=== PATIENT | male | born 1980 | race African-American/Black ===

== ENCOUNTER 2022-04-10 13:42 | Emergency (ER) | payer MEDICAID, SELFPAY ==
[2022-04-10 14:40] VITALS: BP 158/102; PULSE 84; RESP 18; TEMP 37; O2SAT 97; BMI 26.8
--- NOTE | 2022-04-10 14:49 | ED_ITS ---
HPI - Dental/Oral General: Chief complaint: Dental/Oral Stated complaint: Tooth Abcess Time Seen by Provider: 04/10/22 14:47 History of Present Illness: Patient is a 42-year-old male comes to the ED with dental pain. Symptoms started yesterday. He has had a dental abscess in the past in same location. Dental pain in gingival swelling located upper right first molar and bicuspid. He rates his pain currently 9 out of 10. Denies any fevers. Associated symptoms: Denies fever(s) or odynophagia Review of Systems Const: Denies: fever(s), chills or fatigue Eyes: Denies: change in vision or eye discomfort ENMT: Reports: dental pain; Denies: throat pain, odynophagia, nasal discharge or nasal congestion Card: Denies: chest pain, palpitations, edema, swelling of feet/ankles, dyspnea on exertion or orthopnea Resp: Denies: dyspnea, productive cough or non-productive cough GI: Denies: abdominal pain, nausea, vomiting, diarrhea, constipation or hematochezia : Denies: flank pain, difficulty urinating, dysuria or hematuria Musc: Denies: neck pain, back pain or extremity swelling Skin/Breast: Denies: rash or new lesions Neuro: Denies: headache(s), numbness in extremities or weakness in extremities PFSH ED PFSH: Medical History No pertinent family history Surgical History No pertinent past surgical history Physical Exam Const: COMMON NORMALS: no acute distress, patient oriented x3, healthy appearing and alert GENERAL APPEARANCE: cooperative and comfortable HENMT: COMMON NORMALS: normocephalic HEAD & SCALP: normocephalic MOUTH: Normal oral and palatal mucosa present TEETH & GINGIVA: Yes abnormal tooth and associated gingiva upper right second bicuspid tender and with associated gingival edema, Yes caries and Yes poor dentition THROAT: posterior oropharynx normal and uvula midline Neck/C-Spine: COMMON NORMALS: supple GENERAL: Yes normal visual inspection Resp: COMMON NORMALS: normal respiratory effort, No retractions, No use of accessory muscles and clear to auscultation bilaterally AUSCULTATION: clear to auscultation bilaterally Cardio: COMMON NORMALS: regular rate, regular rhythm, S1 normal heart sound present, S2 normal heart sound present, No gallops present (Cardio), No clicks present (Cardio), No murmurs present (Cardio) and Peripheral pulses 2+ throughout RATE: regular rate RHYTHM: regular rhythm HEART SOUNDS: S1 normal heart sound present and S2 normal heart sound present PERIPHERAL PULSES: Peripheral pulses 2+ throughout GI: COMMON NORMALS: Normal to inspection, nondistended, normoactive bowel sounds present, Soft to palpation, non-tender and no masses PALPATION: Yes Soft to palpation : COMMON NORMALS: Yes no CVA tenderness BLADDER/KIDNEY EXAM: Yes no CVA tenderness Back/Pelvis: COMMON NORMALS: no CVA tenderness Extremity: COMMON NORMALS: normal to inspection Neuro: COMMON NORMALS: patient oriented x3 SENSORIUM/ORIENTATION: Yes alert GAIT: Yes Normal gait present Skin: GENERAL SKIN EXAM: dry skin Course Vital Signs: Vital signs: Vital Signs Temperature 98.6 F 04/10/22 14:40 Pulse Rate 84 04/10/22 14:40 Respiratory Rate 18 04/10/22 14:40 Blood Pressure 158/102 04/10/22 14:40 Pulse Oximetry 97 04/10/22 14:40 Oxygen Delivery Me thod 04/10/22 14:40 MDM - Dental/Oral Medical Decision Making Patient is a 42-year-old male comes to the ED with dental pain. Vitals are stable. He appears nontoxic in no acute distress. He has poor dentition with extensive dental decay on multiple teeth. He has some associated gingival edema and tenderness around bicuspids of upper right jaw. Patient was given a dose of pain meds here in the ED and clindamycin. Patient diagnosed with dental abscess and was discharged home with a prescription for clindamycin and a couple hydrocodone to help with pain. He was told to follow-up with dentist as soon as possible to have dental pain addressed. Return to ED precautions given. Patient understood and agreed with plan. Discharge Plan Discharge Patient Disposition: Home Clinical Impression: Dental abscess Condition: Stable Prescriptions: New clindamycin HCl 150 mg capsule 300 mg PO QID 10 Days Qty: 80 0RF ibuprofen 800 mg tablet 800 mg PO Q8H PRN (Reason: pain) Qty: 30 0RF Discharge Orders: Discharge ED (Routine); Ordered 04/10/22 Ordered By: Juan Antonio Stafford Discharge Diet: Regular Discharge Activity: Resume usual activity Patient Instructions: Dental Abscess (ED), Opioid Safety Activity Restrictions/Additional Instructions: Follow-up with dentist as soon as possible to have dental abscess treated. Take medications as prescribed. Return to the ER or your medical provider if condition worsens. Please read and understand discharge instructions. Thank you for choosing [facility] for your healthcare needs today. Please realize this is an emergency room and that we are providing you with a medical screening exam and this may not be complete and all inclusive of all the testing and or work up that you may need to determine your ailment or severity of your illness. It is very important that you follow up as instructed or that you return to the Emergency Department should you have concerns or if your condition changes or worsens in any way. Coding Level of Care Code ED Tool And Die Maker/Designer for Nany Dhillon Exam Comprehensive
[2022-04-10] MEDS: oxyCODONE-APAP 5-325 mg Tablet 1 TAB PO (15:48)
[2022-04-10] MEDS: clindamycin 150 mg Capsule 300 MG PO (15:48)
== END 2022-04-10 15:49 | disposition home or self-care (01) ==
PROVIDERS: Emergency Provider Physician Assistant
DX: K04.7 Periapical abscess without sinus (principal)
CPT/HCPCS: 99283

== ENCOUNTER 2022-05-12 20:56 | Emergency (ER) | payer MEDICAID, SELFPAY ==
--- NOTE | 2022-05-12 20:57 | XRR_ITS ---
PROCEDURE INFORMATION: Exam: XR Left Shoulder Exam date and time: 05/12/2022 9:12 PM Age: 42 years old Clinical indication: Pain; Shoulder; Left; Additional info: Left shoulder pain TECHNIQUE: Imaging protocol: Radiologic exam of the Left shoulder. Views: 2 or more views. COMPARISON: No relevant prior studies available. FINDINGS: Bones/joints: There is possibly a small displaced fracture lucency involving the most distal aspect of the clavicle at the inferior margin. Acromioclavicular alignment is otherwise unremarkable. Glenohumeral joint is normal. Bone mineralization is unremarkable. Soft tissues: Unremarkable soft tissues. XR/XR shoulder LT min 2V* [id number] IMPRESSION: Suspicion for distal left clavicle fracture. Suboptimal visualization. Dedicated clavicle radiographic views or CT scan could clarify.
[2022-05-12 21:53] VITALS: BP 116/83; PULSE 91; RESP 16; TEMP 36.7; O2SAT 96; BMI 25.4
--- NOTE | 2022-05-12 22:23 | XRR_ITS ---
PROCEDURE INFORMATION: Exam: XR Left Clavicle, Complete Exam date and time: 05/12/2022 10:27 PM Age: 42 years old Clinical indication: Pain; Shoulder; Left; Additional info: Pain and abnormal shoulder XR TECHNIQUE: Imaging protocol: Radiologic exam of the Left clavicle. Complete exam. Views: Any number of views. COMPARISON: CR (CHEST, ) 05/12/2022 9:12 PM FINDINGS: Bones/joints: No fractures are visible. Unremarkable joint space alignments. Minor osseous spurring of the distal acromion process. No bone erosion. Questionable abnormality on the prior left shoulder radiographs likely overlying artifact. Soft tissues: Unremarkable soft tissues. XR/[place] [id number] IMPRESSION: No acute left clavicle abnormality identified.
--- NOTE | 2022-05-12 23:15 | ED_ITS ---
HPI - Extremity Problem General: Chief complaint: Extremity Injury, Upper Stated complaint: Left shoulder pain Time Seen by Provider: 05/12/22 22:22 History of Present Illness: Patient is in today for left shoulder pain. He reports that back in January he injured this playing arena football home. He reports that he has not been able to get an MRI of the shoulder just yet. He reports that tonight he reached out to grab his truck door when it open while driving and the pressure pulling against the truck door causing immediate pain. He reports limited range of motion and increased pain right at the joint. Associated symptoms: Deny fever(s) Review of Systems Const: Denies: fever(s) or chills Musc: Reports: joint pain and limited range of motion PFS ED PFSH: Medical History No pertinent family history Surgical History No pertinent past surgical history Physical Exam Const: COMMON NORMALS: no acute distress, patient oriented x3 and alert Resp: COMMON NORMALS: normal respiratory effort and No use of accessory muscles Extremity: NARRATIVE EXTREMITY EXAM: Tenderness to palpation in the left anterior shoulder. No obvious bony deformity appreciated along the shoulder or across the left clavicle. No step- offs appreciated. Patient has some limitation of lateral abduction of the left arm. He cannot abduct all the way to shoulder height. CS M to the distal arm is within normal limits. Neuro: COMMON NORMALS: patient oriented x3 SENSORIUM/ORIENTATION: Yes alert Course Vital Signs: Vital signs: Vital Signs Temperature 98.0 F 05/12/22 21:53 Pulse Rate 91 05/12/22 21:53 Respiratory Rate 16 05/12/22 21:53 Blood Pressure 116/83 05/12/22 21:53 Pulse Oximetry 96 05/12/22 21:53 Oxygen Delivery Me thod 05/12/22 21:53 MDM - Extremity (Nontraumatic) Medical Decision Making Consider rotator cuff injury, labrum tear, fracture, shoulder strain. X-ray shoulder shows suspicion for distal left clavicle fracture and recommended dedicated imaging of the clavicle. X-ray clavicle shows no acute abnormality. We will treat patient conservatively. Toradol injection provided in ER tonight. Patient does not have a primary care provider will consult to clinic case management to establish patient with primary care provider for continued follow- up on previous shoulder injury and this new acute injury. Up with primary care as needed. Return to ER for new or worsening symptoms Lab Data Radiology Impressions Shoulder X-Ray 05/12/22 20:57 IMPRESSION: Suspicion for distal left clavicle fracture. Suboptimal visualization. Dedicated clavicle radiographic views or CT scan could clarify. Clavicle X-Ray 05/12/22 22:23 IMPRESSION: No acute left clavicle abnormality identified. Discharge Plan Discharge Patient Disposition: Home Clinical Impression: Injury of shoulder Qualifiers: Encounter type: subsequent encounter Laterality: left Qualified Code(s): S49.92XD - Unspecified injury of left shoulder and upper arm, subsequent encounter Condition: Stable Prescriptions: No Action ibuprofen 800 mg tablet 800 mg PO Q8H PRN (Reason: pain) Qty: 30 0RF Discharge Orders: Discharge ED (Routine); Ordered 05/12/22 Ordered By: Yvonne Jenkins Discharge Diet: Usual diet Discharge Activity: Increase activity as tolerated Patient Instructions: Shoulder Pain (ED) Activity Restrictions/Additional Instructions: ice and rest the extremity. No lifting for a few days. Tylenol Motrin as needed for pain and swelling. Establish with a primary care provider for continued follow-up of chronic shoulder pain. Return to the emergency department for new or worsening symptoms Coding Level of Care Code ED Lathe Operator Contact Lens for Nany Dhillon
--- NOTE | 2022-05-12 23:19 | W.ED.EXTPRO ---
HPI - Extremity Problem General: Chief complaint: Extremity Injury, Upper Stated complaint: Left shoulder pain Time Seen by Provider: 05/12/22 22:22 History of Present Illness: duplicate chart. Please see other chart signed on same date [facility] ED PFSH: Medical History No pertinent family history Surgical History No pertinent past surgical history Course Vital Signs: Vital signs: Vital Signs Temperature 98.0 F 05/12/22 21:53 Pulse Rate 91 05/12/22 21:53 Respiratory Rate 16 05/12/22 21:53 Blood Pressure 116/83 05/12/22 21:53 Pulse Oximetry 96 05/12/22 21:53 Oxygen Delivery Me thod 05/12/22 21:53 MDM - Extremity (Nontraumatic) Medical Decision Making duplicate chart. Please see other chart signed on same date Lab Data Radiology Impressions Shoulder X-Ray 05/12/22 20:57 IMPRESSION: Suspicion for distal left clavicle fracture. Suboptimal visualization. Dedicated clavicle radiographic views or CT scan could clarify. Clavicle X-Ray 05/12/22 22:23 IMPRESSION: No acute left clavicle abnormality identified. Discharge Plan Discharge Patient Disposition: Home Clinical Impression: Injury of shoulder Qualifiers: Encounter type: subsequent encounter Laterality: left Qualified Code(s): S49.92XD - Unspecified injury of left shoulder and upper arm, subsequent encounter Condition: Stable Prescriptions: No Action promethazine 25 mg tablet 25 mg PO Q6H PRN (Reason: nausea and vomiting) Qty: 20 0RF Protonix 40 mg tablet,delayed release (DR/EC) 40 mg PO BID 56 Days Qty: 112 0RF Discharge Orders: Discharge ED (Routine); Ordered 05/12/22 Ordered By: Yvonne Jenkins Discharge Diet: Usual diet Discharge Activity: Increase activity as tolerated Patient Instructions: Shoulder Pain (ED) Activity Restrictions/Additional Instructions: ice and rest the extremity. No lifting for a few days. Tylenol Motrin as needed for pain and swelling. Establish with a primary care provider for continued follow-up of chronic shoulder pain. Return to the emergency department for new or worsening symptoms Coding Level of Care Code ED Parking Lot Attendant And Cashier for Nany Dhillon
[2022-05-12] MEDS: ketorolac 60 mg/2 mL INJ IM (23:39)
--- NOTE | 2022-05-17 10:31 | DCPLANNER ---
international operations manager had message to speak with patient about getting established with a primary care physician. international operations manager unable to speak with patient at this time.
== END 2022-05-12 23:40 | disposition home or self-care (01) ==
PROVIDERS: Emergency Provider Nurse Practitioner Family
DX: S49.92XA Unspecified injury of left shoulder and upper arm, initial encounter (principal); X50.9XXA Other and unspecified overexertion or strenuous movements or postures, initial encounter
CPT/HCPCS: 73000; 73030; 96372; 99284; J1885

== ENCOUNTER 2022-05-13 12:56 | Emergency (ER) | payer MEDICAID, SELFPAY ==
[2022-05-13 13:27] VITALS: BP 152/94; PULSE 86; RESP 16; TEMP 36.4; O2SAT 99; BMI 26.7
--- NOTE | 2022-05-13 14:58 | ECG_ITS ---
[facility] Test Date: 2022-05-13 Pat Name: Carlos Alberto Anderson Department: Room: Gender: Male Lan Administrator: : 1980 Requested By: Cameron Serrato Order Number: [id number] Keyon MD: Camelia Urbina M.D. Measurements Intervals [place] Rate: 75 P: 41 AR: 127 QRS: 71 QRSD: 83 T: 59 QT: 373 QTc: 419 Interpretive Statements SINUS RHYTHM WITH MARKED SINUS ARRHYTHMIA No previous ECG available for comparison Electronically Signed On 05-14-2022 7:46:19 CONCRETE FOREMAN by Camelia Urbina M.D. [email or web address]
--- NOTE | 2022-05-13 14:58 | XR_ITS ---
WS: [id number] XR chest 1V portable [id number] REASON FOR EXAM: dyspnea/cough FINDINGS: The heart and mediastinum are within normal limits. Calcified granulomatous disease in both hemithoraces. No active pulmonary parenchymal or pleural disease. Mild thoracic scoliosis with minimal degenerative spondylosis. XR/XR chest 1V portable [id number] IMPRESSION: No acute chest abnormality.
--- NOTE | 2022-05-13 15:18 | PC.NURSE ---
PT PLACED ON CONTINUOUS NIBP, SPO2, AND CM
[2022-05-13 15:26] LABS: Basophils % 0.3 %; Eosinophils % 0.1 %; Hematocrit 46.7 % (42.0-52.0); Hemoglobin 15.8 g/dL (11.7-16.6); Lymphocytes # 1.2 10^3/uL (0.8-4.8); Lymphocytes % 9.6 %; Mean Corpuscular HGB Conc 33.8 g/dL (30.0-36.0); Mean Corpuscular Hemoglobin 31.3 pg (28.0-34.0); Mean Corpuscular Volume 92.7 fl (80-94); Mean Platelet Volume 9.5 fL (7.4-10.4); Monocytes # 0.3 10^3/uL (0.2-0.9); Monocytes % 2.7 %; Neutrophils # 11.11 10^3/uL (1.8-7.7); Nucleated Red Blood Cells % 0 %; Platelet Count 347 10^3/cmm (130-400); Red Blood Count 5.04 10^6/uL (4.1-5.3); Red Cell Distribution Width 13.2 % (12.1-15.1); White Blood Count 12.8 10^3/uL (4.0-10.0)
--- NOTE | 2022-05-13 15:30 | CTR_ITS ---
PROCEDURE INFORMATION: Exam: CT Abdomen And Pelvis Without Contrast Exam date and time: 05/13/2022 3:51 PM Age: 42 years old Clinical indication: Abdominal pain TECHNIQUE: Imaging protocol: Computed tomography of the abdomen and pelvis without contrast. Radiation optimization: All CT scans at this facility use at least one of these dose optimization techniques: automated exposure control; mA and/or kV adjustment per patient size (includes targeted exams where dose is matched to clinical indication); or iterative reconstruction. COMPARISON: CR XR chest 1V portable [id number] 05/13/2022 3:07 PM RADIATION DOSE METRICS: Total DLP (mGy-cm): 536.33 FINDINGS: Liver: Normal. No mass. Gallbladder and bile ducts: Normal. No calcified stones. No ductal dilation. Pancreas: Normal. No ductal dilation. Spleen: Normal. No splenomegaly. Adrenal glands: Normal. No mass. Kidneys and ureters: Normal. No hydronephrosis. Stomach and bowel: Unremarkable. No obstruction. No mucosal thickening. Appendix: No evidence of appendicitis. Intraperitoneal space: Unremarkable. No free air. No significant fluid collection. Vasculature: Unremarkable. No abdominal aortic aneurysm. Lymph nodes: Unremarkable. No enlarged lymph nodes. Urinary bladder: Unremarkable as visualized. Reproductive: Unremarkable as visualized. Bones/joints: Unremarkable. No acute fracture. Soft tissues: Unremarkable. CT/CT abdomen pelvis [facility] [id number] IMPRESSION: No acute findings.
[2022-05-13 15:32] VITALS: BP 162/106; PULSE 69; RESP 18; O2SAT 98
[2022-05-13] MEDS: ondansetron 2 mg/ML SDV 2 mL 4 MG IVP (15:37)
--- NOTE | 2022-05-13 15:37 | ED_ITS ---
HPI - Nausea/Vomiting/Diarrhea General: Chief complaint: Nausea/Vomiting/Diarrhea Stated complaint: Throwing up blood and chills Time Seen by Provider: 05/13/22 14:57 Source: patient Mode of arrival: ambulatory History of Present Illness: 42-year-old male who presents emergency room with chills nausea and vomiting. He states he was in last night had some shoulder pain he got a IM Toradol shot and he said after that he has had quite a bit of vomiting including couple episodes of vomiting blood now wishes had bili vomiting. He is some epigastric discomfort is not having any black tarry stools maroon stools or bright red blood per stool. Patient has a aluminum foil basin at the bedside and I came in the room and is all bile vomitus. Subjectively like he has had fever and chills. He denies dysuria urgency or frequency. MD elicited complaint: nausea and vomiting Onset (ago): hour(s) Description of vomiting: watery, bilious and blood-streaked Associated nausea: Yes Associated abdominal pain: Yes Location of pain: Epigastric Pain consistency: constant Severity: moderate Quality: cramping Exacerbating factors: none Relieving factors: none Associated symtoms: Reports nausea; Denies altered mental status, anxiety, bloating, change in vision, chest pain, cough, diaphoresis, decreased urine output, dizziness, dysuria, epistaxis, fatigue, fecal incontinence, fevers/chills, headache(s), anorexia, malaise, myalgias, numbness, palpitations, rash, short of breath, syncope, tenesmus, tinnitus or weakness Review of Systems Const: Denies: fatigue, malaise or diaphoresis Eyes: Denies: change in vision ENMT: Denies: tinnitus or epistaxis Card: Denies: chest pain, palpitations or syncope GI: Reports: abdominal pain, nausea, vomiting, hematemesis, diarrhea and GI cramping; Denies: coffee ground emesis, bloating or fecal incontinence : Denies: dysuria, urinary frequency or urinary urgency Musc: Denies: neck pain or back pain Skin/Breast: Denies: rash or pruritus Neuro: Denies: headache(s) or dizziness Psych: Denies: anxiety PFSH ED PFSH: Medical History No pertinent family history Surgical History No pertinent past surgical history Physical Exam Const: EXAM LIMITATIONS: no altered mental status GENERAL APPEARANCE: cooperative and comfortable ORIENTATION/CONSCIOUSNESS: Yes awake, Yes oriented to person, Yes oriented to place and Yes oriented to time HENMT: COMMON NORMALS: normocephalic, atraumatic and hearing grossly normal bilaterally HEAD & SCALP: normocephalic and atraumatic Resp: COMMON NORMALS: normal respiratory effort, No retractions, No use of accessory muscles and clear to auscultation bilaterally AUSCULTATION: clear to auscultation bilaterally Cardio: COMMON NORMALS: regular rate, regular rhythm and No murmurs present (Cardio) RATE: regular rate RHYTHM: regular rhythm GI: COMMON NORMALS: Soft to palpation and No hepatosplenomegaly present AUSCULTATION: Yes normoactive bowel sounds PALPATION: Yes Soft to palpation, No Tenderness to palpation present (GI), No Guarding due to palpation present (GI) and Yes No hepatosplenomegaly present Extremity: COMMON NORMALS: normal to inspection, capillary refill normal, no clubbing, cyanosis or edema, no calf tenderness and no pedal edema Neuro: SENSORIUM/ORIENTATION: Yes oriented to person, Yes oriented to place and Yes oriented to time Skin: COMMON NORMALS: no rashes or lesions noted GENERAL SKIN EXAM: no rashes or lesions noted Course Vital Signs: Vital signs: Vital Signs Temperature 97.6 F 05/13/22 13:27 Pulse Rate 99 05/13/22 17:08 Respiratory Rate 18 05/13/22 16:32 Blood Pressure 99/82 05/13/22 16:32 Pulse Oximetry 100 05/13/22 17:08 Oxygen Delivery Me thod 05/13/22 13:27 MDM - Nausea/Vomiting/Diarrhea Medical Decision Making Labs and imaging reviewed. Patient positive influenza B. Supportive cares. Discussed risk benefits and efficacy of the Tamiflu patient opted out. I think his right shoulder pain is musculoskeletal. Recommend he follow-up as needed. Medical Records I reviewed the patient's medical records. Lab Data I reviewed the patient's lab results. 05/13/22 15:11 05/13/22 15:11 Radiology Impressions Chest X-Ray 05/13/22 14:58 IMPRESSION: No acute chest abnormality. Abdomen/Pelvis CT 05/13/22 15:30 IMPRESSION: No acute findings. Laboratory Results WBC 12.8 10^3/uL (4.0-10.0) H 05/13/22 15:11 RBC 5.04 10^6/uL (4.1-5.3) 05/13/22 15:11 Hgb 15.8 g/dL (11.7-16.6) 05/13/22 15:11 Hct 46.7 % (42.0-52.0) 05/13/22 15:11 MCV 92.7 fl (80-94) 05/13/22 15:11 MCH 31.3 pg (28.0-34.0) 05/13/22 15:11 MCHC 33.8 g/dL (30.0-36.0) 05/13/22 15:11 RDW 13.2 % (12.1-15.1) 05/13/22 15:11 Plt Count 347 10^3/cmm (130-400) 05/13/22 15:11 MPV 9.5 fL (7.4-10.4) 05/13/22 15:11 Neut % (Auto) 87.0 % 05/13/22 15:11 Lymph % (Auto) 9.6 % 05/13/22 15:11 [place] % (Auto) 2.7 % 05/13/22 15:11 Eos % (Auto) 0.1 % 05/13/22 15:11 Baso % (Auto) 0.3 % 05/13/22 15:11 Neut # (Auto) 11.11 10^3/uL (1.8-7.7) H 05/13/22 15:11 Lymph # (Auto) 1.2 10^3/uL (0.8-4.8) 05/13/22 15:11 [place] # (Auto) 0.3 10^3/uL (0.2-0.9) 05/13/22 15:11 Eos # (Auto) 0.0 10^3/uL (0.0-0.8) 05/13/22 15:11 Baso # (Auto) 0.0 10^3/uL (0.0-0.1) 05/13/22 15:11 Nucleated RBC % (auto) 0 % 05/13/22 15:11 Nucleated RBCs # 0.0 /100WBC 05/13/22 15:11 PT 13.90 SECONDS (12.1-14.9) 05/13/22 15:11 INR 1.03 (0.8-1.2) 05/13/22 15:11 APTT 27.5 SECONDS (23.9-36.7) 05/13/22 15:11 Sodium 139 mmol/L (136-145) 05/13/22 15:11 Potassium 3.7 mmol/L (3.5-5.1) 05/13/22 15:11 Chloride 102 mmol/L (98-107) 05/13/22 15:11 Carbon Dioxide 24 mmol/L (22-29) 05/13/22 15:11 Anion Gap 16.7 (5-19) 05/13/22 15:11 BUN 14 mg/dL (6-20) 05/13/22 15:11 Creatinine 0.9 mg/dL (0.7-1.2) 05/13/22 15:11 GFR Calculation 110.9 mL/min (90-130) 05/13/22 15:11 Glucose 152 mg/dL (65-115) H 05/13/22 15:11 Calculated Osmolality 291 mOsm/kg (285-295) 05/13/22 15:11 Calcium 10.0 mg/dL (8.5-10.5) 05/13/22 15:11 Total Bilirubin 0.6 mg/dL (0.15-1.2) 05/13/22 15:11 AST 18 U/L (0-40) 05/13/22 15:11 ALT 13 U/L (0-41) 05/13/22 15:11 Alkaline Phosphatase 94 U/L (40-130) 05/13/22 15:11 Troponin T Baseline 6 ng/L (0-15) 05/13/22 15:11 Total Protein 7.8 g/dL (6.6-8.7) 05/13/22 15:11 Albumin 4.7 g/dL (3.5-5.2) 05/13/22 15:11 Globulin 3.1 g/dL (1.3-4.6) 05/13/22 15:11 Influenza Type A Ag Negative (Negative) 05/13/22 15:40 Influenza Type B Ag Positive (Negative) H 05/13/22 15:40 Discharge Plan Discharge Patient Disposition: Home Clinical Impression: Influenza B Condition: Stable Prescriptions: New promethazine 25 mg tablet 25 mg PO Q6H PRN (Reason: nausea and vomiting) Qty: 20 0RF Protonix 40 mg tablet,delayed release (DR/EC) 40 mg PO BID 56 Days Qty: 112 0RF Discharge Orders: Discharge ED (Routine); Ordered 05/13/22 Ordered By: Cameron Hein Discharge Diet: Clear Liquid Discharge Activity: Increase activity as tolerated Patient Instructions: Opioid Safety, Pain Management Activity Restrictions/Additional Instructions: You were found to have influenza B. Your hemoglobin is stable. Will start on Protonix 40 mg twice a day and also start you on Phenergan to use as needed for nausea and vomiting. As we discussed you had opted not to do the antivirals for influenza. Recommend clear liquid diet for 24 to 48 hours and advance as tolerated. Coding Level of Care Code ED Core Winder Machine Operator for Nany Fwd Exam Detailed
[2022-05-13] MEDS: sodium chloride 0.9% 1,000 ML 999 ML IV (15:38)
[2022-05-13 15:43] LABS: INR 1.03 (0.8-1.2)
[2022-05-13 15:44] LABS: Partial Thromboplastin Time 27.5 SECONDS (23.9-36.7)
[2022-05-13 15:52] LABS: Alanine Aminotransferase 13 U/L (0-41); Albumin Level 4.7 g/dL (3.5-5.2); Alkaline Phosphatase 94 U/L (40-130); Anion Gap 16.7 (5-19); Aspartate Amino Transferase 18 U/L (0-40); Blood Urea Nitrogen 14 mg/dL (6-20); Carbon Dioxide 24 mmol/L (22-29); Chloride 102 mmol/L (98-107); Globulin 3.1 g/dL (1.3-4.6); Glomerular Filtration Rate 110.9 mL/min (90-130); Glucose 152 mg/dL (65-115); Osmolality Calculated 291 mOsm/kg (285-295); Potassium 3.7 mmol/L (3.5-5.1); Sodium 139 mmol/L (136-145); Total Bilirubin 0.6 mg/dL (0.15-1.2); Total Protein 7.8 g/dL (6.6-8.7)
[2022-05-13 16:02] VITALS: BP 131/95; PULSE 75; RESP 13; O2SAT 99
[2022-05-13 16:08] LABS: Troponin(5th) Baseline 6 ng/L (0-15)
[2022-05-13 16:27] LABS: Influenza A by IFA Negative (Negative); Influenza B by IFA Positive (Negative)
[2022-05-13 16:32] VITALS: BP 99/82; PULSE 80; RESP 18; O2SAT 98
[2022-05-13 17:08] VITALS: PULSE 99; O2SAT 100
== END 2022-05-13 17:13 | disposition home or self-care (01) ==
PROVIDERS: Emergency Provider Family Medicine
DX: J10.1 Influenza due to other identified influenza virus with other respiratory manifestations (principal)
CPT/HCPCS: 36415; 71045; 74176; 80053; 84484; 85025; 85610; 85730; 87804; 93005; 96374; 99285; J2405; J7030

== ENCOUNTER 2022-07-27 12:44 | Outpatient (CLI) | payer MEDICAID, SELFPAY ==
--- NOTE | 2022-07-27 13:05 | MR_ITS ---
WS: [id number] EXAMINATION: MR shoulder LT wo con* [id number] ORDER DATE: 07/27/2022 1:19 PM COMPARISON: None. HISTORY: L SHOULDER INJURY CONTRAST: None. TECHNIQUE: Axial T2 STAR, coronal proton density fat sat, sagittal T2 fat sat, sagittal proton densit y fat sat, axial proton density fat sat, coronal T2 fat sat, and coronal T1 performed. After contrast , axial T1 fat sat, coronal T1 fat sat, and sagittal T1 fat sat were performed. FINDINGS: Prominent fluid and edema in the AC joint with associated bone marrow edema in the distal clavicle an d acromion. Subacromial and subdeltoid fluid. Recommend correlation with history of AC joint injury. Tiny fracture versus degenerative irregularity involving the distal clavicle at the AC joint. Mild wi dening of the AC joint with irregularity of the acromioclavicular ligaments suspicious for ligamentou s injury. No elevation of the clavicle relative to the acromium. Normal biceps labral anchor. Normal biceps tendon in the bicipital groove. Glenoid labrum appears sebas ssly normal. Normal bone marrow signal in the glenoid. Mild chronic thinning of the supraspinatus wit h tendinopathy. Normal infraspinatus. Normal teres minor. Subscapularis tendon appears intact. Intra- articular biceps tendon is normal in appearance. Normal bone marrow signal in the humerus and glenoid . MR/MR shoulder LT wo con* [id number] IMPRESSION: 1. Prominent fluid and edema in the AC joint with subacromial subdeltoid fluid . Mild widening of the AC joint with bone marrow edema and small joint effusion . Edema and irregularity involving the acromioclavicular ligaments suspicious f or ligamentous AC joint injury. 2. Slight cortical irregularity involving the inferior distal clavicle as seen on the prior radiograph likely due to chronic degenerative change versus less likely tiny nondisplaced fracture. 3. Mild chronic thinning of the supraspinatus with tendinopathya. No high-grad e rotator cuff tears. 4. Glenoid labrum appears grossly normal. 5. Normal biceps tendon in the bicipital groove. Normal intra-articular biceps tendon.
== END 2022-07-27 12:45 | disposition home or self-care (01) ==
PROVIDERS: PCP Family Medicine; Visit Provider Family Medicine
DX: S49.92XA Unspecified injury of left shoulder and upper arm, initial encounter (principal); X58.XXXA Exposure to other specified factors, initial encounter; R60.0 Localized edema
CPT/HCPCS: 73221

== ENCOUNTER 2024-09-08 20:12 | Emergency (ER) | payer MEDICAID, SELFPAY ==
[2024-09-08 20:19] VITALS: BP 173/83; PULSE 91; RESP 18; TEMP 37.1; O2SAT 97; BMI 29.8
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
[2024-09-08 22:36] VITALS: BP 169/86; PULSE 87; RESP 16; O2SAT 98
== END 2024-09-08 22:33 | disposition home or self-care (01) ==
PROVIDERS: Emergency Provider Nurse Practitioner Family; PCP Family Medicine
DX: R51.9 Headache, unspecified (principal); S16.1XXA Strain of muscle, fascia and tendon at neck level, initial encounter; V89.2XXA Person injured in unspecified motor-vehicle accident, traffic, initial encounter
CPT/HCPCS: 70450; 72125; 99284